=== PATIENT | male | born 1965 | race African-American/Black ===

== ENCOUNTER 2020-11-03 19:35 | Emergency (ER) | payer OTHER, SELFPAY ==
[2020-11-03 19:43] VITALS: BP 109/62; PULSE 127; RESP 16; TEMP 37.4; O2SAT 93; BMI 25.7
--- NOTE | 2020-11-03 22:08 | ED.GENADULT ---
HPI - General Adult General Chief complaint: Altered Mental Status Stated complaint: AMS Time Seen by Provider: 11/03/20 21:13 Source: patient Mode of arrival: EMS History of Present Illness HPI narrative: This is a 55-year-old male who denies any past medical history and was brought in by EMS for altered mental status, but patient is able to hold a conversation and remaining history was obtained from him. As per staff at [facility] the patient had been in the bathroom stall for ?30-40 minutes? and as per EMS he was found ?awake and alert but confused with needles on the floor?. Patient states that, yes sometimes he gets his 2 jackets confused and said he was having some diarrhea that he feels may be secondary to withdrawal from the heroin. He states he last had alcohol or injected approximately 2 days ago. Patient states that he is having some nausea as well as diarrhea, but otherwise denies any sore throat, cough, shortness of breath, chest pain/palpitations, urinary difficulty. Related Data Allergies Allergy/AdvReac Type Severity Reaction Status Date / Time No Known Allergies Allergy Unverified 07/05/20 18:39 Review of Systems Review of Systems: Pertinent positives and negatives as stated in HPI and 10 point review of systems otherwise negative. PMFSH Past Medical History Source: nursing notes reviewed Medical History Substance abuse Social History Social History Advance Directives: No Advance Directives Information Provided: No Physical Exam Vital Signs: Vital Signs: Last Vital Signs Temp 99.3 F 11/03/20 19:43 Pulse 127 H 11/03/20 19:43 Resp 16 11/03/20 19:43 BP 109/62 11/03/20 19:43 Pulse Ox 93 11/03/20 19:43 Body Mass Index 25.7 VITAL SIGNS: Reviewed. GENERAL: Well developed, well nourished, in no acute distress. HEAD: Normocephalic/atraumatic, EYES: PERRLA, EOMI EARS: Ext canals without abnormality NOSE: Nares patent bilateral OROPHARYNX: no oral lesions noted, posterior pharynx clear NECK: Supple, no adenopathy LUNGS: Normal breath sounds. SpO2<93> CARDIOVASCULAR: Regular rate and rhythm without noted murmurs, no JVD or lower extremity edema. ABDOMEN: Soft, non-tender, non-distended with bowel sounds. MUSCULOSKELETAL: No tenderness, deformities, or effusions noted on gross inspection. NEUROLOGIC: Alert and oriented x 4. Course Course Course Narrative: This is a 55-year-old male with history and clinical presentation consistent with likely substance use contributing to questionable altered mental status, but on my evaluation patient is alert and oriented x3 and suspect he has substances on board but otherwise no evidence of infection. -labs, urine tox, UA On review of all investigations and re-evaluation patient does not appear to be altered and is simply under the influence what appears to be opiates and cocaine. Otherwise, there are no acute findings to suggest infection. All results and findings were discussed with patient at bedside and he was discharged home in stable condition after noted to tolerate sandwiches and drinks prior to discharge. Patient was noted to have a steady gait in emergency department. Medical Decision Making Lab Data Result diagrams: 11/03/20 22:33 11/03/20 22:33 Labs: Lab Results 11/03/20 11/03/20 11/03/20 Range/Units 22:32 22:32 22:32 WBC (4.8-10.8) X10*3/uL RBC (4.60-5.80) X10*6/uL Hgb (14.0-18.0) g/dl Hct (42-52) % MCV (80-98) fL MCH (27.0-33.0) pg MCHC (31.0-36.0) g/dl RDW (11.0-16.0) % Plt Count (160-400) X10*3/uL MPV (9.4-12.4) fL Immature Gran % (Auto) (0.0-0.4) % Neut % (Auto) (45-73) % Lymph % (Auto) (20-40) % [place] % (Auto) (2-11) % Eos % (Auto) (0-4) % Baso % (Auto) (0-2) % Lymph # (Auto) (1.2-4.9) X10*3/uL [place] # (Auto) (0.1-1.2) X10*3/uL Eos # (Auto) (0.0-0.4) X10*3/uL Baso # (Auto) (0.0-0.2) X10*3/uL Abs Immat Gran (auto) (0.00-0.03) X10*3/uL Absolute Neuts (auto) (2.0-8.3) X10*3/uL Absolute Nucleated RBC (0.0-0.012) X10*3/uL Nucleated RBC % (auto) (0.0-0.2) /100WBC Sodium (135-145) mmol/L Potassium (3.3-5.1) mmol/l Chloride (96-108) mmol/L Carbon Dioxide (22-29) mmol/L Anion Gap (12-20) BUN (9-16) mg/dL Creatinine (0.5-1.4) mg/dL Estim Creat Clear Calc Estimated GFR Random Glucose (60-115) mg/dL Lactic Acid 1.1 (0.5-2.0) mmol/L Calcium (8.4-10.2) mg/dL Total Bilirubin (0.0-1.0) mg/dL AST (5-37) U/L ALT (0-40) U/L Alkaline Phosphatase (39-117) U/L Total Protein (6.5-8.0) g/dL Albumin (3.5-5.0) g/dL Urine Color DARK YELLOW Urine Appearance CLEAR Urine pH 7.0 (5.0-8.0) Ur Specific [place] 1.020 (1.005-1.025) Urine Protein TRACE (NEG-TRACE) MG/DL Urine Glucose (UA) NEG (NEG) MG/DL Urine Ketones NEG (NEG) MG/DL Urine Blood NEG (NEG) Urine Nitrite NEG (NEG) Ur Leukocyte Esterase NEG (NEG) Urine Opiates Screen (Not Detect) Ur Barbiturates Screen (Not Detect) Ur Phencyclidine Scrn (Not Detect) Ur Amphetamines Screen (Not Detect) U Benzodiazepines Scrn (Not Detect) Urine Cocaine Screen (Not Detect) U Marijuana (THC) Screen (Not Detect) Ethyl Alcohol < 10 mg/dL 11/03/20 11/03/20 11/03/20 Range/Units 22:33 22:33 22:44 WBC 5.9 (4.8-10.8) X10*3/uL RBC 3.80 L (4.60-5.80) X10*6/uL Hgb 12.4 L (14.0-18.0) g/dl Hct 36.8 L (42-52) % MCV 96.8 (80-98) fL MCH 32.6 (27.0-33.0) pg MCHC 33.7 (31.0-36.0) g/dl RDW 12.7 (11.0-16.0) % Plt Count 240 (160-400) X10*3/uL MPV 10.2 (9.4-12.4) fL Immature Gran % (Auto) 0.3 (0.0-0.4) % Neut % (Auto) 61.9 (45-73) % Lymph % (Auto) 26.2 (20-40) % [place]comb % (Auto) 11.1 H (2-11) % Eos % (Auto) 0.2 (0-4) % Baso % (Auto) 0.3 (0-2) % Lymph # (Auto) 1.5 (1.2-4.9) X10*3/uL [place] # (Auto) 0.7 (0.1-1.2) X10*3/uL Eos # (Auto) 0.0 (0.0-0.4) X10*3/uL Baso # (Auto) 0.0 (0.0-0.2) X10*3/uL Abs Immat Gran (auto) 0.02 (0.00-0.03) X10*3/uL Absolute Neuts (auto) 3.6 (2.0-8.3) X10*3/uL Absolute Nucleated RBC 0.000 (0.0-0.012) X10*3/uL Nucleated RBC % (auto) 0.0 (0.0-0.2) /100WBC Sodium 139 (135-145) mmol/L Potassium 4.5 (3.3-5.1) mmol/l Chloride 101 (96-108) mmol/L Carbon Dioxide 29 (22-29) mmol/L Anion Gap 14 (12-20) BUN 19 H (9-16) mg/dL Creatinine 1.09 (0.5-1.4) mg/dL Estim Creat Clear Calc 84.0 Estimated GFR > 60 Random Glucose 123 H (60-115) mg/dL Lactic Acid (0.5-2.0) mmol/L Calcium 9.3 (8.4-10.2) mg/dL Total Bilirubin 0.3 (0.0-1.0) mg/dL AST 58 H (5-37) U/L ALT 55 H (0-40) U/L Alkaline Phosphatase 74 (39-117) U/L Total Protein 7.9 (6.5-8.0) g/dL Albumin 3.8 (3.5-5.0) g/dL Urine Color Urine Appearance Urine pH (5.0-8.0) Ur Specific [place] (1.005-1.025) Urine Protein (NEG-TRACE) MG/DL Urine Glucose (UA) (NEG) MG/DL Urine Ketones (NEG) MG/DL Urine Blood (NEG) Urine Nitrite (NEG) Ur Leukocyte Esterase (NEG) Urine Opiates Screen POSITIVE H (Not Detect) Ur Barbiturates Screen Not Detected (Not Detect) Ur Phencyclidine Scrn Not Detected (Not Detect) Ur Amphetamines Screen Not Detected (Not Detect) U Benzodiazepines Scrn Not Detected (Not Detect) Urine Cocaine Screen POSITIVE H (Not Detect) U Marijuana (THC) Screen Not Detected (Not Detect) Ethyl Alcohol mg/dL Discharge Plan Discharge Clinical Impression: Substance abuse, daily use Patient Disposition: Home, Self-Care Instructions: Polysubstance Abuse (ED) Additional Instructions: Please return to the emergency department if you develop any acute worsening of your symptoms. Referrals: Physician,Unknown [Primary Care Provider] - 2 days
[2020-11-03 22:41] LABS: MANUAL DIFF FLAG NO
[2020-11-03 22:43] LABS: Basophils Percent Auto 0.3 % (0-2); Eosinophils Percent Auto 0.2 % (0-4); Hematocrit 36.8 % (42-52); Hemoglobin 12.4 g/dl (14.0-18.0); Imm Gran Abs Auto 0.02 X10*3/uL (0.00-0.03); Imm Gran Pct Auto 0.3 % (0.0-0.4); Lymphocytes Absolute Auto 1.5 X10*3/uL (1.2-4.9); Lymphocytes Percent Auto 26.2 % (20-40); Mean Corpuscular HGB Conc 33.7 g/dl (31.0-36.0); Mean Corpuscular Hemoglobin 32.6 pg (27.0-33.0); Mean Corpuscular Volume 96.8 fL (80-98); Mean Platelet Volume 10.2 fL (9.4-12.4); Monocytes Absolute Auto 0.7 X10*3/uL (0.1-1.2); Monocytes Percent Auto 11.1 % (2-11); Neutrophils Absolute Auto 3.6 X10*3/uL (2.0-8.3); Neutrophils Percent Auto 61.9 % (45-73); Platelet Count 240 X10*3/uL (160-400); Red Cell Distribution Width 12.7 % (11.0-16.0); White Blood Count 5.9 X10*3/uL (4.8-10.8)
[2020-11-03 22:59] LABS: Glucose Urine UA NEG (NEG); Leukocyte Esterase Urine NEG (NEG); Nitrite Urine NEG (NEG); Urine Blood NEG (NEG); Urine Ketones NEG (NEG); Urine Protein TRACE MG/DL (NEG-TRACE)
[2020-11-03 23:02] LABS: Appearance Urine CLEAR; Color Urine DARK YELLOW
[2020-11-03 23:12] LABS: Lactic Acid 1.1 mmol/L (0.5-2.0)
[2020-11-03 23:13] LABS: Ethanol < 10 mg/dL
[2020-11-03 23:17] LABS: Alanine Aminotransferase 55 U/L (0-40); Albumin Level 3.8 g/dL (3.5-5.0); Alkaline Phosphatase 74 U/L (39-117); Anion Gap 14 (12-20); Aspartate Amino Transferase 58 U/L (5-37); Bilirubin Total 0.3 mg/dL (0.0-1.0); Blood Urea Nitrogen 19 mg/dL (9-16); Calcium 9.3 mg/dL (8.4-10.2); Carbon Dioxide 29 mmol/L (22-29); Chloride 101 mmol/L (96-108); Estimated Glomerular Filt Rate > 60; Glucose Random 123 mg/dL (60-115); Potassium 4.5 mmol/l (3.3-5.1); Sodium 139 mmol/L (135-145); Total Protein 7.9 g/dL (6.5-8.0)
[2020-11-03 23:22] LABS: Amphetamine Screen Urine Not Detected (Not Detect); Barbiturates, Urine Not Detected (Not Detect); Benzodiazepines Screen Urine Not Detected (Not Detect); Cannabinoid Screen Urine Not Detected (Not Detect); Cocaine Screen Urine POSITIVE (Not Detect); Opiate Screen Urine POSITIVE (Not Detect); Phencyclidine Screen Urine Not Detected (Not Detect)
--- NOTE | 2020-11-03 23:54 | MHC.PT.OD ---
[facility] [place] Office [place] Office [place] Office [address] Eren Fung [address] [facility] [phone] F: [phone] F: [phone] F: [phone] F: [phone] Physical Therapy Daily Note Diagnosis: Date of Surgery: Date of Evaluation: Date of Treatment: Treatments to Date: Cancellations to Date: No Shows to Date: Authorized Visits: Insurance End Date: Precautions/ Contraindications: Subjective: Pain Score and Location: Objective Flowsheet: Tests & Measures Exercises Modalities Assessment: PT Plan: Short Term Goals: Jail Goals: Electronically signed by:
--- NOTE | 2020-11-03 23:54 | PC.NURSE ---
PT WAS REFUSING ALL LABS AND TEST BUT AGREED TO LAB DRAW AND URINE TEST.
[2020-11-04 00:38] VITALS: BP 107/78; PULSE 88; RESP 16; TEMP 37.1; O2SAT 99
--- NOTE | 2020-11-04 00:39 | PC.NURSE ---
PT HAS BEEN EATING AND DRINKING WITHOUT ISSUE. ATE 3 SANDWICHES AND 4 GINGERALES.
== END 2020-11-04 00:56 | disposition home or self-care (01) ==
PROVIDERS: Emergency Provider Student in an Organized Health Care Education/Training Program
DX: R41.82 Altered mental status, unspecified (principal); F11.19 Opioid abuse with unspecified opioid-induced disorder; F14.19 Cocaine abuse with unspecified cocaine-induced disorder; Z71.51 Drug abuse counseling and surveillance of drug abuser
CPT/HCPCS: 36415; 80053; 80307; 80320; 81003; 83605; 85025; 87040; 87077; 87186; 87205; 99283

== ENCOUNTER 2020-11-05 10:16 | Emergency (ER) | payer OTHER, SELFPAY ==
[2020-11-05 10:22] VITALS: BP 125/63; PULSE 81; RESP 18; TEMP 37; O2SAT 96; BMI 25.7
--- NOTE | 2020-11-05 11:20 | ED.RECABL ---
HPI - Recheck/Abnormal Lab/Rx General Chief Complaint: Recheck/Abnormal Lab/Rx Stated Complaint: abnormal labs Time Seen by Provider: 11/05/20 10:56 Source: patient Mode of arrival: ambulatory Limitations: no limitations History of Present Illness HPI narrative: 55-year-old male with a past medical history of IV drug abuse, alcohol abuse here with abnormal labs. The patient tells me he was seen here on November 03. He had 2/2 blood cultures which grew Gram-positive cocci in chains. Patient has no complaints. He denies any fevers or chills. He does tell me he continues to use IV heroin daily. complaint: abnormal lab Initial visit (ago): day(s) (2 days ago) Returns today for: called because of abnormal lab/test Symptoms since prior visit: no new symptoms Associated symptoms: none Related Data Previous Rx's Medication Instructions Recorded amoxicillin-pot clavulanate 1 tab PO BID #14 tab 11/05/20 [Augmentin] doxycycline monohydrate 100 mg PO BID 7 Days #14 cap 11/05/20 Allergies Allergy/AdvReac Type Severity Reaction Status Date / Time No Known Allergies Allergy Verified 11/05/20 10:25 Review of Systems Review of Systems: Yes all other systems are reviewed and are negative Constitutional: Constitutional: Reports no additional constitutional complaints, Denies body ache(s), Denies chills, Denies fever(s), Denies headache(s) and Denies weakness Eyes: Eyes: Reports no additional eye complaints and Denies change in vision ENT: Reports system reviewed and no additional complaints, except as documented, Denies dizziness, Denies headache(s), Denies nasal congestion, Denies nasal discharge and Denies neck pain Cardiovascular: Cardiovascular: Reports no additional cardiovascular complaints, Denies chest pain, Denies leg edema and Denies dyspnea Respiratory: Respiratory: Reports no additional respiratory complaints, Denies cough and Denies dyspnea Gastrointestinal: Gastrointestinal: Reports no additional gastrointestinal complaints, Denies abdominal pain, Denies diarrhea, Denies nausea and Denies vomiting Genitourinary: Genitourinary: Denies urinary incontinence Musculoskeletal: Musculoskeletal: Reports no additional musculoskeletal complaints, Denies back pain, Denies arthralgias, Denies joint swelling, Denies neck pain, Denies numbness and Denies tingling Integumentary/Breasts: Skin/Breast: Reports system reviewed and no additional complaints, except as docu and Denies rash Neurologic: Reports system reviewed and no additional complaints, except as documented, Denies Abnormal speech present, Denies dizziness, Denies headache(s), Denies numbness, Denies tingling and Denies weakness PMFSH Past Medical History Attestation statement: The following information was validated with the patient. Source: old records reviewed and nursing notes reviewed Medical History Substance abuse Social History Social History Advance Directives: No Advance Directives Information Provided: No Physical Exam Vital Signs: Vital Signs: Last Vital Signs Temp 98.6 F 11/05/20 10:22 Pulse 81 11/05/20 10:22 Resp 18 11/05/20 10:22 BP 125/63 11/05/20 10:22 Pulse Ox 96 11/05/20 10:22 Body Mass Index 25.7 Const: General: cooperative, healthy appearing, comfortable and no acute distress Orientation/consciousness: patient oriented x3 Limitations: no limitations HENMT: Head: Yes normal to inspection Ears: hearing grossly normal bilaterally General nose exam: Normal external nose present Face and sinus: Yes normal facial exam Mouth: Normal oral and palatal mucosa present Throat: Yes posterior oropharynx normal Eyes: General: appearance normal, both eyes and all related structures Pupils: Equal, round and reactive pupils present Neck: Neck: Yes normal visual inspection Chest: Chest palpation & inspection: normal inspection of the chest Resp: Effort & Inspection: normal respiratory effort Auscultation: clear to auscultation bilaterally Cardio: Rate: regular rate Rhythm: regular rhythm Peripheral pulses: Peripheral pulses 2+ throughout GI: Inspection: Yes normal to inspection Palpation (GI): Soft to palpation and nontender Auscultation: normal bowel sounds Back/Spine/Pelvis: Thoracic/Lumbar Spine: thoracic and lumbar spine normal to inspection Skin: General skin exam: no rashes or lesions noted Neuro: General: patient oriented x3, no focal motor deficits and normal sensation to monofilament Cranial nerves: Yes Equal, round and reactive pupils present Cognition (Neuro): normal cognition Speech: No Abnormal speech present Gait exam (Neuro): Normal gait present Motor exam (neuro): 5/5 motor strength present throughout Extrem: General: Yes normal to inspection Course Course Course Narrative: 55-year-old male here called back for abnormal blood cultures. 2/2 grew Gram-positive cocci in chains. Patient has a history of IV drug abuse. He has no complaints on his arrival here. He is afebrile. I explained to the patient that he should be admitted to the hospital to receive IV antibiotics as he has bacteremia. Patient tells me that today is not a good day. He has many things to do and will return to the different day for admission. Patient is alert and oriented x3. Will have patient sign out AMA. Nurse Cricket carrillo. MDM - Recheck/Abnormal Lab/Rx MDM Narrative Medical decision making narrative: bactereremia Discharge Plan Discharge Clinical Impression: Blood bacterial culture positive Patient Disposition: Left Against Medical Advice Instructions: Against Medical Advice (ED), Bacteremia (ED) Additional Instructions: It was recommended they stay in the hospital to receive IV antibiotics as you have blood cultures that show bacteria in her blood stream. This is very serious and it will kill you if you are not treated appropriately. Please return at any time to be admitted to the hospital Prescriptions: New doxycycline monohydrate 100 mg capsule 100 mg PO BID 7 Days Qty: 14 RF: 0 amoxicillin-pot clavulanate [Augmentin] 875-125 mg tablet 1 tab PO BID Qty: 14 RF: 0 Stand Alone Forms: Against Medical Advice Interventions: ED Discharge Assessment Last Done: 11/05/20 11:23 Discharge Date/Time: 11/05/20 11:23
== END 2020-11-05 11:23 | disposition left against medical advice (07) ==
PROVIDERS: Emergency Provider Emergency Medicine
DX: R78.81 Bacteremia (principal); F19.10 Other psychoactive substance abuse, uncomplicated; F10.10 Alcohol abuse, uncomplicated
CPT/HCPCS: 99283

== ENCOUNTER 2021-04-26 21:01 | Emergency (ER) | payer OTHER, SELFPAY ==
[2021-04-26 21:22] VITALS: BP 129/60; BP 129/66; PULSE 112; PULSE 137; RESP 16; O2SAT 95; O2SAT 99; BMI 24.4
--- NOTE | 2021-04-26 21:44 | ECG_ITS ---
Test Reason : GENERAL MED Blood Pressure : / mmHG Vent. Rate : 105 BPM Atrial Rate : 105 BPM P-R Int : 138 ms QRS Dur : 076 ms QT Int : 364 ms P-R-T Axes : 053 026 030 degrees QTc Int : 481 ms Sinus tachycardia Possible Left atrial enlargement Borderline ECG When compared with ECG of 01-JUL-2017 11:23, QT has lengthened Referred By: Jessica Lizarraga Electronically Signed By:LESLI ROLON
--- NOTE | 2021-04-26 21:46 | ED.OVERDOSE ---
HPI - Overdose General Chief Complaint: Overdose Stated Complaint: od Time Seen by Provider: 04/26/21 21:43 History of Present Illness HPI Narrative: Patient is a 56-year-old male with a history of polysubstance abuse. Patient found in the bathroom of a [facility]. With a bag of heroin in his hand. Patient was very lethargic at the time. Was not given any Narcan. Patient woke up. Subsequently was sent to the emergency department for further evaluation. He denies any suicidal homicidal ideation. He is not sure what drug use. Patient denies any use of cocaine in the past. Denies any use of heroin in the past. Patient has no fever no chills. Patient stated he use ATT Related Data Previous Rx's Medication Instructions Recorded amoxicillin-pot clavulanate 1 tab PO BID #14 tab 11/05/20 [Augmentin] doxycycline monohydrate 100 mg PO BID 7 Days #14 cap 11/05/20 Allergies Allergy/AdvReac Type Severity Reaction Status Date / Time No Known Allergies Allergy Verified 11/05/20 10:25 Review of Systems Review of Systems: Patient refused to answer specific review of system. [facility] Past Medical History Attestation statement: The following information was validated with the patient. Medical History Substance abuse Social History Social History Advance Directives: No Physical Exam Vital Signs: Vital Signs: Last Vital Signs Pulse 137 H 04/26/21 21:22 Resp 16 04/26/21 21:22 BP 129/60 04/26/21 21:22 Pulse Ox 95 04/26/21 21:22 Body Mass Index 24.4 Appearance: Alert. Oriented X3. No acute distress. Eyes: Pupils equal, round and reactive to light. ENT: Pharynx normal. Neck: Normal inspection. Neck supple. No lymph nodes noted. No crepitus CVS: Tachycardic heart rate is 130, regular Respiratory: No respiratory distress. Breath sounds normal. No Wheezing. No rales Abdomen: Soft and nontender. No rigidity. No distention. good BS x4 Skin: Skin warm and dry. Normal skin color. Normal skin turgor. Extremities: No lower extremity edema. Neurovascular intact to all extremities. No Lacerations. No Rash Neuro: Oriented X 3. No motor deficit. No sensory deficit. Moving all extermities. No slurred speech MDM - Overdose MDM Narrative Medical decision making narrative: Will give IV fluids. Patient's monitor looks like a sinus tachycardia pattern. Will get an EKG. Will check electrolytes. We will monitor carefully. Patient well-appearing no distress. Monitor in the emergency department 4 hours. U tox positive for cocaine and for opiates. Patient told to stop using recreational drugs close to closely follow-up. Offer Narcan and offered detox. In stable condition with discharge home. Lab Data Result diagrams: 04/26/21 21:55 04/26/21 21:55 Labs: Lab Results 04/26/21 04/26/21 04/26/21 Range/Units 21:54 21:55 21:55 WBC 6.2 (4.8-10.8) X10*3/uL RBC 4.27 L (4.60-5.80) X10*6/uL Hgb 13.9 L (14.0-18.0) g/dl Hct 41.2 L (42-52) % MCV 96.5 (80-98) fL MCH 32.6 (27.0-33.0) pg MCHC 33.7 (31.0-36.0) g/dl RDW 12.2 (11.0-16.0) % Plt Count 295 (160-400) X10*3/uL MPV 10.2 (9.4-12.4) fL Immature Gran % (Auto) 0.3 (0.0-0.4) % Neut % (Auto) 75.5 H (45-73) % Lymph % (Auto) 15.0 L (20-40) % [place] % (Auto) 7.9 (2-11) % Eos % (Auto) 1.1 (0-4) % Baso % (Auto) 0.2 (0-2) % Lymph # (Auto) 0.9 L (1.2-4.9) X10*3/uL [place] # (Auto) 0.5 (0.1-1.2) X10*3/uL Eos # (Auto) 0.1 (0.0-0.4) X10*3/uL Baso # (Auto) 0.0 (0.0-0.2) X10*3/uL Abs Immat Gran (auto) 0.02 (0.00-0.03) X10*3/uL Absolute Neuts (auto) 4.7 (2.0-8.3) X10*3/uL Absolute Nucleated RBC 0.000 (0.0-0.012) X10*3/uL Nucleated RBC % (auto) 0.0 (0.0-0.2) /100WBC Sodium 142 (135-145) mmol/L Potassium 3.9 (3.3-5.1) mmol/L Chloride 105 (96-108) mmol/L Carbon Dioxide 24 (22-29) mmol/L Anion Gap 17 (12-20) BUN 11 (9-16) mg/dL Creatinine 1.11 (0.5-1.4) mg/dL Estim Creat Clear Calc 81.5 Estimated GFR > 60 Random Glucose 128 H (60-115) mg/dL Calcium 9.8 (8.4-10.2) mg/dL Total Bilirubin 0.5 (0.0-1.0) mg/dL AST 103 H (5-37) U/L ALT 106 H (0-40) U/L Alkaline Phosphatase 61 (39-117) U/L Total Protein 8.4 H (6.5-8.0) g/dL Albumin 4.0 (3.5-5.0) g/dL Urine Opiates Screen (Not Detect) Ur Barbiturates Screen (Not Detect) Ur Phencyclidine Scrn (Not Detect) Ur Amphetamines Screen (Not Detect) U Benzodiazepines Scrn (Not Detect) Urine Cocaine Screen (Not Detect) U Marijuana (THC) Screen (Not Detect) Ethyl Alcohol < 10 mg/dL 04/27/21 Range/Units 00:03 WBC (4.8-10.8) X10*3/uL RBC (4.60-5.80) X10*6/uL Hgb (14.0-18.0) g/dl Hct (42-52) % MCV (80-98) fL MCH (27.0-33.0) pg MCHC (31.0-36.0) g/dl RDW (11.0-16.0) % Plt Count (160-400) X10*3/uL MPV (9.4-12.4) fL Immature Gran % (Auto) (0.0-0.4) % Neut % (Auto) (45-73) % Lymph % (Auto) (20-40) % [place] % (Auto) (2-11) % Eos % (Auto) (0-4) % Baso % (Auto) (0-2) % Lymph # (Auto) (1.2-4.9) X10*3/uL [place] # (Auto) (0.1-1.2) X10*3/uL Eos # (Auto) (0.0-0.4) X10*3/uL Baso # (Auto) (0.0-0.2) X10*3/uL Abs Immat Gran (auto) (0.00-0.03) X10*3/uL Absolute Neuts (auto) (2.0-8.3) X10*3/uL Absolute Nucleated RBC (0.0-0.012) X10*3/uL Nucleated RBC % (auto) (0.0-0.2) /100WBC Sodium (135-145) mmol/L Potassium (3.3-5.1) mmol/L Chloride (96-108) mmol/L Carbon Dioxide (22-29) mmol/L Anion Gap (12-20) BUN (9-16) mg/dL Creatinine (0.5-1.4) mg/dL Estim Creat Clear Calc Estimated GFR Random Glucose (60-115) mg/dL Calcium (8.4-10.2) mg/dL Total Bilirubin (0.0-1.0) mg/dL AST (5-37) U/L ALT (0-40) U/L Alkaline Phosphatase (39-117) U/L Total Protein (6.5-8.0) g/dL Albumin (3.5-5.0) g/dL Urine Opiates Screen POSITIVE H (Not Detect) Ur Barbiturates Screen Not Detected (Not Detect) Ur Phencyclidine Scrn Not Detected (Not Detect) Ur Amphetamines Screen Not Detected (Not Detect) U Benzodiazepines Scrn Not Detected (Not Detect) Urine Cocaine Screen POSITIVE H (Not Detect) U Marijuana (THC) Screen Not Detected (Not Detect) Ethyl Alcohol mg/dL Discharge Plan Discharge Clinical Impression: Drug overdose, Cocaine intoxication Patient Disposition: Home, Self-Care Instructions: Cocaine Abuse (ED), Narcotic Use Disorder (ED) Prescriptions: No Action doxycycline monohydrate 100 mg capsule 100 mg PO BID 7 Days Qty: 14 RF: 0 amoxicillin-pot clavulanate [Augmentin] 875-125 mg tablet 1 tab PO BID Qty: 14 RF: 0 Referrals: Physician,Unknown [Primary Care Provider] - 2 days (Please go to detox. Please stop using cocaine. Please stop using heroin.)
[2021-04-26] MEDS: 0.9 % Sodium Chloride 1,000 ML 999 ML IV ×2 (21:55→21:56)
[2021-04-26 22:02] LABS: MANUAL DIFF FLAG NO
[2021-04-26 22:03] LABS: Basophils Percent Auto 0.2 % (0-2); Eosinophils Absolute Auto 0.1 X10*3/uL (0.0-0.4); Eosinophils Percent Auto 1.1 % (0-4); Hematocrit 41.2 % (42-52); Hemoglobin 13.9 g/dl (14.0-18.0); Imm Gran Abs Auto 0.02 X10*3/uL (0.00-0.03); Imm Gran Pct Auto 0.3 % (0.0-0.4); Lymphocytes Absolute Auto 0.9 X10*3/uL (1.2-4.9); Mean Corpuscular HGB Conc 33.7 g/dl (31.0-36.0); Mean Corpuscular Hemoglobin 32.6 pg (27.0-33.0); Mean Corpuscular Volume 96.5 fL (80-98); Mean Platelet Volume 10.2 fL (9.4-12.4); Monocytes Absolute Auto 0.5 X10*3/uL (0.1-1.2); Monocytes Percent Auto 7.9 % (2-11); Neutrophils Absolute Auto 4.7 X10*3/uL (2.0-8.3); Neutrophils Percent Auto 75.5 % (45-73); Platelet Count 295 X10*3/uL (160-400); Red Blood Count 4.27 X10*6/uL (4.60-5.80); Red Cell Distribution Width 12.2 % (11.0-16.0); White Blood Count 6.2 X10*3/uL (4.8-10.8)
[2021-04-26 22:36] LABS: Ethanol < 10 mg/dL
[2021-04-26 22:40] LABS: Alanine Aminotransferase 106 U/L (0-40); Alkaline Phosphatase 61 U/L (39-117); Anion Gap 17 (12-20); Aspartate Amino Transferase 103 U/L (5-37); Bilirubin Total 0.5 mg/dL (0.0-1.0); Blood Urea Nitrogen 11 mg/dL (9-16); Calcium 9.8 mg/dL (8.4-10.2); Carbon Dioxide 24 mmol/L (22-29); Chloride 105 mmol/L (96-108); Creatinine Clr Calc Pharmacy 81.5; Estimated Glomerular Filt Rate > 60; Glucose Random 128 mg/dL (60-115); Potassium 3.9 mmol/L (3.3-5.1); Sodium 142 mmol/L (135-145); Total Protein 8.4 g/dL (6.5-8.0)
[2021-04-27 00:32] LABS: Amphetamine Screen Urine Not Detected (Not Detect); Barbiturates, Urine Not Detected (Not Detect); Benzodiazepines Screen Urine Not Detected (Not Detect); Cannabinoid Screen Urine Not Detected (Not Detect); Cocaine Screen Urine POSITIVE (Not Detect); Opiate Screen Urine POSITIVE (Not Detect); Phencyclidine Screen Urine Not Detected (Not Detect)
[2021-04-27 01:19] VITALS: BP 121/62; PULSE 84; RESP 16; TEMP 36.7; O2SAT 96
== END 2021-04-27 01:20 | disposition home or self-care (01) ==
PROVIDERS: Emergency Provider Emergency Medicine Emergency Medical Services
DX: T40.1X1A Poisoning by heroin, accidental (unintentional), initial encounter (principal); F11.10 Opioid abuse, uncomplicated; Y92.511 Restaurant or cafe as the place of occurrence of the external cause; Z71.51 Drug abuse counseling and surveillance of drug abuser; Z79.899 Other long term (current) drug therapy
CPT/HCPCS: 80053; 80307; 82077; 85025; 93005; 96360; 99283